=== PATIENT | male | born 1990 | race Caucasian/White ===

== ENCOUNTER 2016-05-29 20:30 | Emergency (ER) | payer OTHER ==
[~2016-05-29] VITALS: Ht 172.7 cm; Wt 79.3 kg
[2016-05-29 20:36] VITALS: TEMP 36.9; Ht 172.7 cm; Wt 79.3 kg
--- NOTE | 2016-05-29 20:59 | EMERGENCY ROOM VISIT NOTE ---
History Report prepared by Crystal: Jamal Wisdom Under the Supervision of: Dr. Luiza Hoyt M.D. First contact with patient: 20:40 Chief Complaint: ALCOHOL OVERDOSE Stated Complaint: POSS. ETOH Nursing Triage Summary: Patient arrived to ED via EMS for a possible alcohol overdose. Patient reports that he was at [employer] and "took a nap". According to staff he was asleep for an hour. When police arrived on scene, he was difficult to arouse and then was uncooperative with ambulance personnel. Patient denies alcohol or drug use. History of Present Illness The patient is a 25 year old male who presents to the Emergency Room with complaints of sudden possible alcohol intoxication beginning just prior to arrival. As per EMS, the patient was at [employer] and "took a nap." They note the employees of the restaurant states the patient was asleep for an hour. It is noted that when police arrived, the patient was difficult to arouse and uncooperative with ambulance personnel. 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 Source of History: patient, EMS Onset: just prior to arrival Position: other (global) Quality: other (possible alcohol intoxication) Timing: other (sudden) Review of Systems See HPI for pertinent positives & negatives. A total of 10 systems reviewed and were otherwise negative. Past Medical & Surgical Medical Problems: (1) No pertinent past medical history Family History Patient reports no known family medical history. Social History Smoking Status: Current Every Day Smoker Marital Status: single Occupation Status: employed Current/Historical Medications Scheduled Bupropion Hcl (Wellbutrin), 1 TAB PO DAILY Mirtazapine Soltab (Remeron Soltab), 15 MG PO HS [Flovent 110 Mcg], 2 PUFF INH BID Scheduled PRN Albuterol Hfa (Ventolin Hfa), 2 PUFFS INH Q6H PRN for SOB/Wheezing Allergies Coded Allergies: NSAIDs (Verified Allergy, Severe, THROAT SWELLS, 05/29/16) Penicillins (Verified Allergy, Unknown, FAMILY HISTORY, 05/29/16) Uncoded Allergies: GARLIC (Allergy, Intermediate, THROATS SWELLS, 05/29/16) IF EATS TOO MUCH Physical Exam Vital Signs Date Time Temp Pulse Resp B/P Pulse Ox O2 Delivery O2 Flow Rate FiO2 05/29/16 22:00 105 20 155/91 94 05/29/16 20:50 110 05/29/16 20:36 36.9 116 20 164/99 94 Room Air Physical Exam Vital signs reviewed. General: Disheveled-appearing male, malodorous, intoxicated clinically, slurring speech, flushed face, generally atraumatic. HEENT: No scleral icterus, PERRLA, neck supple. Atraumatic. Cardiovascular: Regular rate and rhythm, no extra sounds. Pulmonary: Clear to auscultation bilaterally, normal work of breathing. Abdomen: Soft, nontender, nondistended, positive bowel sounds. Musculoskeletal: Atraumatic, no peripheral edema. Neurologic: Patient awake alert and oriented x 3, full strength in all 4 extremities. Cranial nerves 2 through 12 grossly intact. Skin: Warm, dry, no rash Medical Decision & Procedures Laboratory Results Laboratory results per my review. Medications Administered Medications (Trade) Dose Ordered Sig/Priyanka Route Start Time Stop Time Status Last Admin Dose Admin Acetaminophen (Tylenol Tab) 650 mg NOW STAT PO 05/29/16 21:51 05/29/16 21:52 DC 05/29/16 21:51 650 MG ED Course 2049: Past medical records reviewed. The patient was evaluated in room C9. A complete history and physical examination was performed. 2150: Ordered Tylenol Tab 650 mg PO. 2199: Upon reevaluation, the patient appeared to have improvement of his symptoms. I discussed findings with him. He verbalized agreement of the treatment plan. The patient was discharged home. Medical Decision The differential diagnosis of the patient's presentation includes alcohol ingestion, illicit drug use, trauma, and dehydration. This patient was evaluated and appeared to be in no significant distress. IV access was obtained and laboratory work was drawn. Patient was placed on the surveillance system monitor. He is noted to be disheveled and belligerent. He appears to have not showered in several days. Patient denies any alcohol or drug use. His presentation is consistent with intoxication. The patient was able to find a sober ride home. He was discharged and will return to the ER for worsening of symptoms or any medical concerns. Impression Primary Impression: Alcohol intoxication Scribe Attestation The scribe's documentation has been prepared under my direction and personally reviewed by me in its entirety. I confirm that the note above accurately reflects all work, treatment, procedures, and medical decision making performed by me. Departure Information Dispostion Home / Self-Care Referrals No Doctor, Assigned (PCP) Forms HOME CARE DOCUMENTATION FORM, IMPORTANT VISIT INFORMATION Patient Instructions My [facility] Additional Instructions Diagnosis: Intoxication Drink plenty of clear fluids. Follow up with your doctor this week for reevaluation. Return to emergency for worsening of symptoms or any medical concerns.
[2016-05-29] MEDS ORDERED: VNTHFA/IN INH (21:09)
[2016-05-29] MEDS ORDERED: FLOVENT 110 MCG INH (21:09)
[2016-05-29] MEDS ORDERED: BUPR75TA8 PO (21:09)
[2016-05-29] MEDS ORDERED: MIRT15TA2 PO (21:09)
[2016-05-29] MEDS ORDERED: ACETAMINOPHEN 325 MG TAB PO STA (21:51)
[2016-05-29 22:00] VITALS: BP 155/91; PULSE 105; O2SAT 94
== END 2016-05-29 22:01 | disposition home or self-care (01) ==
LOC: EDBD 20:30 → C.EDC 20:31
DX: F10.129 Alcohol abuse with intoxication, unspecified (principal); F17.200 Nicotine dependence, unspecified, uncomplicated

== ENCOUNTER 2016-08-08 21:47 | Emergency (ER) | payer OTHER ==
[~2016-08-08] VITALS: Ht 172.7 cm; Wt 80.1 kg
[2016-08-08 21:47] VITALS: TEMP 36.8; Ht 172.7 cm; Wt 80.1 kg
[~2016-08-08 21:47] MED LIST: BUPR75TA8 PO; FLOVENT 110 MCG INH; MIRT15TA2 PO; VNTHFA/IN INH
[2016-08-08] MEDS ORDERED: MOME100A INH (22:19)
--- NOTE | 2016-08-08 22:41 | DIAGNOSTIC IMAGING REPORT ---
CT HEAD WITHOUT CONTRAST (CT) CLINICAL HISTORY: Head pain status post trauma COMPARISON STUDY: No previous studies for comparison. TECHNIQUE: Axial CT of the brain is performed from the vertex to the skull base. IV contrast was not administered for this examination. CT DOSE: 638.56 mGycm FINDINGS: No intra or extra-axial mass lesions are visualized. There is no CT evidence of acute cortical infarction. There is no evidence of midline shift. There is no acute hemorrhage. No calvarial fractures are visualized. There is no evidence of pathologic ventricular dilatation. There is no evidence of acute sinusitis IMPRESSION: Normal noncontrast head CT. Electronically signed by: Hilario Velez M.D. 08/08/2016 10:40 PM Dictated Date/Time: 08/08/2016 10:39 PM
--- NOTE | 2016-08-08 22:46 | DIAGNOSTIC IMAGING REPORT ---
CT OF THE CERVICAL SPINE CLINICAL HISTORY: Neck pain status post trauma COMPARISON STUDY: No previous studies for comparison. CT DOSE: 453.22 mGycm TECHNIQUE: CT scan of the cervical spine was performed from the skull base to the thoracic inlet. Images are reviewed in the axial, sagittal, and coronal planes. IV contrast was not administered for this examination. FINDINGS: The visualized portions of the lung apices reveal no evidence of pneumothorax. The prevertebral soft tissues are normal. No fractures or subluxations are visualized. IMPRESSION: No evidence of acute fracture or traumatic subluxation. Electronically signed by: Hilario Velez M.D. 08/08/2016 10:44 PM Dictated Date/Time: 08/08/2016 10:43 PM
[2016-08-08 23:43] VITALS: BP 139/63; PULSE 79; O2SAT 91
--- NOTE | 2016-08-08 23:52 | EMERGENCY ROOM VISIT NOTE ---
History First contact with patient: 21:55 Chief Complaint: FALL Stated Complaint: HEADACHE, ABBRASION TO KNEE & THUMB History of Present Illness The patient is a 25 year old male who presents to the Emergency Room via EMS for evaluation of an injury. The patient was apparently drinking at a baseball game in [facility], which violates his parole. He was told to leave again and leave, but then subsequently returned. He ran from the police initially but was eventually tackled by them. He now complains of multiple areas of pain , including his head and neck. He denies loss of consciousness. Rates his discomfort a 10/10. The patient does admit to drinking alcohol tonight. Denies any other drug use. Review of Systems A complete 10 point review of systems was reviewed with the patient with pertinent positives and negatives as per history of present illness. All else were negative. Past Medical/Surgical History Medical Problems: (1) No pertinent past medical history Family History Patient reports no known family medical history. Social History Smoking Status: Current Some Day Smoker Marital Status: single Occupation Status: employed Current/Historical Medications Scheduled Bupropion Hcl (Wellbutrin), 75 MG PO BID Mirtazapine Soltab (Remeron Soltab), 15 MG PO HS Mometasone Furoate-Formoterol (Dulera 100/5 Mcg), 1 AER INH BID Scheduled PRN Albuterol Hfa (Ventolin Hfa), 2 PUFFS INH Q6H PRN for SOB/Wheezing Allergies Coded Allergies: NSAIDs (Verified Allergy, Severe, THROAT SWELLS, 08/08/16) Penicillins (Verified Allergy, Unknown, FAMILY HISTORY, 08/08/16) Uncoded Allergies: GARLIC (Allergy, Intermediate, THROATS SWELLS, 05/29/16) IF EATS TOO MUCH Physical Exam Vital Signs Date Time Temp Pulse Resp B/P (MAP) Pulse Ox O2 Delivery O2 Flow Rate FiO2 08/08/16 23:43 79 18 139/63 91 Room Air 08/08/16 21:47 36.8 126 18 136/87 91 Room Air Physical Exam VITALS: Vitals are noted on the nurse's note and reviewed by myself. Vital signs stable. GENERAL: This is a 26-year-old male, crying, appears to be intoxicated, well- developed well-nourished. SKIN: Multiple abrasions. HEENT: Normocephalic. PERRLA. EOMI. Nares patent. Mucous membranes moist. Neck is supple without nuchal rigidity. There is mild tenderness to palpation over the posterior cervical spine. HEART: Regular rate and rhythm without murmurs gallops or rubs. LUNGS: Clear to auscultation bilaterally without wheezes, rales or rhonchi. ABDOMEN: Positive bowel sounds x 4. Soft, nontender to palpation. MUSCULOSKELETAL: There is tenderness to bilateral shoulders, right hip, right knee and right ankle. No deformities noted. Full range of motion of all extremities. Strength 5/5 throughout. NEURO: Patient was alert and oriented to person place and time. He appears to be intoxicated. Medical Decision & Procedures ER Provider Diagnostic Interpretation: CT HEAD WITHOUT CONTRAST (CT): IMPRESSION: Normal noncontrast head CT. CT OF THE CERVICAL SPINE IMPRESSION: No evidence of acute fracture or traumatic subluxation. RIGHT ANKLE X-RAY: No fractures or dislocations. RIGHT KNEE X-RAY: No fractures or dislocations. RIGHT HIP X-RAY: No bony abnormalities. RIGHT SHOULDER, LEFT SHOULDER X-RAYS: No fracture or dislocation within either shoulder. Medical Decision Differential diagnosis includes fracture, contusion, dislocation, among others. The patient is a 26-year-old male who presents today in the presence of police for evaluation of injuries after being tackled by a chief of police. CTs of the head and cervical spine were performed and read by radiology with no acute findings. Multiple x-rays were performed and read by myself and show no acute fractures or dislocations. The patient was informed of all findings and discharged home in the custody of police. Medication reconciliation: I attest that I have personally reviewed the patient 's current medication list. Blood Pressure Screening: Patient was found to have a slightly elevated blood pressure due to circumstances. I do not believe that the patient requires hypertension monitoring. Impression Primary Impression: Fall Additional Impression: Contusion of multiple sites Departure Information Dispostion Home / Self-Care Condition GOOD Referrals No Doctor, Assigned (PCP) Patient Instructions My [facility] Additional Instructions For pain control, you can use the following [id number] medicines (if >12 yo): - Regular strength (325mg/tab) Tylenol (acetaminophen) 2 tabs every 4-6 hours as needed. Do not exceed 12 tablets in a 24 hour period. Avoid taking more than 4 grams (4000 mg) of Tylenol per day. This includes any other sources of acetaminophen you may take on a regular basis. - Regular strength (200 mg/tab) Advil (ibuprofen) 1-2 tabs every 4-6 hours as needed. Do not exceed a dose of 3200 mg per day. Proper wound care is essential for adequate wound healing and infection prevention. You can shower and clean the wound with soap and water. Do not scour over the wound, pat dry with a towel. Do not submerse the wound (i.e. bathe or dish wash) until the wound has fully healed. You can use an antibiotic ointment with a dressing over the wound for the next 3-4 days. After this time you may leave the wound dry and open to the air. Follow-up with your primary care provider as needed. Problem Qualifiers Primary Impression: Fall Encounter type: initial encounter Qualified Codes: W19.XXXA - Unspecified fall, initial encounter
--- NOTE | 2016-08-09 06:42 | DIAGNOSTIC IMAGING REPORT ---
RIGHT ANKLE MIN 3 VIEWS ROUTINE CLINICAL HISTORY: right ankle pain, fall Right COMPARISON: None. DISCUSSION: The bones and joint spaces appear intact. There is no evidence of fracture, dislocation or bony disease. There is no evidence for soft tissue swelling. IMPRESSION: Negative study. Electronically signed by: Prasad Galicia M.D. 08/09/2016 6:41 AM Dictated Date/Time: 08/09/2016 6:39 AM
--- NOTE | 2016-08-09 06:44 | DIAGNOSTIC IMAGING REPORT ---
RIGHT HIP UNILATERAL 2 VIEWS CLINICAL HISTORY: right hip pain, fall Right trauma. Pain. COMPARISON: None. DISCUSSION: The bones and joint spaces appear intact. There is no evidence of fracture, dislocation or bony disease. There is no evidence for soft tissue swelling. IMPRESSION: Negative study. Electronically signed by: Prasad Galicia M.D. 08/09/2016 6:43 AM Dictated Date/Time: 08/09/2016 6:43 AM
--- NOTE | 2016-08-09 06:47 | DIAGNOSTIC IMAGING REPORT ---
RIGHT SHOULDER MIN 2 VIEWS ROUTINE CLINICAL HISTORY: b/l shoulder pain, fall Right COMPARISON: None. DISCUSSION: The bones and joint spaces appear intact. There is no evidence of fracture, dislocation or bony disease. There is no evidence for soft tissue swelling. IMPRESSION: Negative study. Electronically signed by: Prasad Galicia M.D. 08/09/2016 6:46 AM Dictated Date/Time: 08/09/2016 6:44 AM
--- NOTE | 2016-08-09 06:49 | DIAGNOSTIC IMAGING REPORT ---
LEFT SHOULDER MIN 2 VIEWS ROUTINE CLINICAL HISTORY: b/l shoulder pain, fall trauma. Pain. COMPARISON: None. DISCUSSION: The bones and joint spaces appear intact. There is no evidence of fracture, dislocation or bony disease. There is no evidence for soft tissue swelling. IMPRESSION: Negative study. Electronically signed by: Prasad Galicia M.D. 08/09/2016 6:48 AM Dictated Date/Time: 08/09/2016 6:46 AM
--- NOTE | 2016-08-09 07:07 | DIAGNOSTIC IMAGING REPORT ---
RIGHT KNEE 3 VIEWS CLINICAL HISTORY: right knee pain/injury, fall Right trauma. Pain. COMPARISON: None. DISCUSSION: The bones and joint spaces appear intact. There is no evidence of fracture, dislocation or bony disease. There is no evidence for soft tissue swelling. IMPRESSION: Negative study. Electronically signed by: Prasad Galicia M.D. 08/09/2016 7:05 AM Dictated Date/Time: 08/09/2016 7:05 AM
== END 2016-08-08 23:53 | disposition home or self-care (01) ==
LOC: EDBD 21:47 → C.EDC 21:51
DX: T14.8 Other injury of unspecified body region (principal); Y92.320 Baseball field as the place of occurrence of the external cause; W19.XXXA Unspecified fall, initial encounter; Y93.82 Activity, spectator at an event; F17.210 Nicotine dependence, cigarettes, uncomplicated; Z79.899 Other long term (current) drug therapy